=== PATIENT | female | born 1970 | race Two or more races ===

== ENCOUNTER 2024-05-09 22:07 | Emergency (ER) | payer BC ==
[~2024-05-09] VITALS: Ht 157.5 cm; Wt 68.2 kg
[2024-05-09 22:38] VITALS: TEMP 98.6
[2024-05-09 22:41] VITALS: BP 101/71; PULSE 80; RESP 18
[2024-05-09] MEDS: ACETAMINOPHEN 500 MG TABLET PO ONE (22:50)
[2024-05-09] MEDS: SODIUM CHLORIDE 0.9% 1,000 ML IV ONE (22:50)
[2024-05-09] MEDS: DIPHENOXYLATE/ATROP 2.5-0.025 MG TABLET PO ONE (22:50)
[2024-05-09] MEDS: ONDANSETRON HCL 4 MG/2 ML VIAL IVP ONE (22:50)
[2024-05-09 23:12] LABS: BASOPHILS % (AUTO) 0.2 % (0.0-2.0); EOSINOPHILS % (AUTO) 0.5 % (1.0-6.0); HEMOGLOBIN 11.9 g/dL (12.0-16.0); LYMPHOCYTES # (AUTO) 1.7 K/uL (1.0-4.8); MEAN CORPUSCULAR HEMOGLOBIN 31.8 pg (26.0-34.0); MEAN CORPUSCULAR HGB CONC 33.1 G/dL (31.0-37.0); MEAN CORPUSCULAR VOLUME 96 fL (80-100); MONOCYTES # (AUTO) 0.7 K/uL (0.1-1.0); MONOCYTES % (AUTO) 5.9 % (2.0-9.0); NEUTROPHILS # (AUTO) 9.8 K/uL (1.8-7.7); NEUTROPHILS % (AUTO) 79.4 % (40.0-70.0); PLATELET COUNT (AUTO) 250 K/uL (150-450); RED BLOOD CELL COUNT(AUTO) 3.75 MIL/uL (4.00-5.20); RED CELL DISTRIBUTION WIDTH 13.1 % (11.5-14.5); WHITE BLOOD COUNT (AUTO) 12.3 K/uL (4.5-11.0)
[2024-05-09 23:30] LABS: ANION GAP 5 mmol/L (8-16); CALCIUM, TOTAL 8.9 mg/dL (8.8-10.5); CARBON DIOXIDE 27 mmol/L (22-29); CHLORIDE 108 mmol/L (98-107); CREATININE 0.87 mg/dL (0.60-1.30); GLOMERULAR FILTR. RATE CALC > 60 mL/min (>60); GLUCOSE,RANDOM 148 mg/dL (70-110); POTASSIUM 3.6 mmol/L (3.5-5.1); SODIUM SERUM 140 mmol/L (136-145); UREA NITROGEN, BLOOD 15 mg/dL (7-18)
[2024-05-09 23:31] LABS: LIPASE 24 U/L (16-77)
[2024-05-09] MEDS ORDERED: DIPH-1130 PO (23:58)
[2024-05-09] MEDS ORDERED: ONDA-104 PO (23:58)
== END 2024-05-10 00:17 | disposition home or self-care (01) ==
LOC: EMS 22:09
DX: K52.9 Noninfective gastroenteritis and colitis, unspecified (principal); I10 Essential (primary) hypertension; Z85.3 Personal history of malignant neoplasm of breast
CPT/HCPCS: 99283; 96374; 96361; 80048; 83690; 85025; 36415; J2405; J7030